=== PATIENT | male | born 1945 ===

== ENCOUNTER 2018-05-02 16:11 | Inpatient (IN) | payer MEDICARE, OTHER ==
[2018-05-02 16:40] VITALS: BMI 22.8
[2018-05-02] MEDS ORDERED: Sodium Chloride 0.9% 1,000 ML IV STA ×2 (16:47→22:39)
[2018-05-02 17:47] LABS: BASO # 0.03 K/mm3 (0.0-2.0); BASO % 0.4 % (0.0-3.0); EOS # 0.1 (0.0-0.7); EOS % 0.9 % (1.5-5.0); GRAN # 5.15 (1.4-6.5); GRAN % 65.4 % (50.0-68.0); HEMOGLOBIN 14.9 g/dL (14.0-18.0); LYMPH # 1.9 (1.2-3.4); LYMPH % 24.6 % (22.0-35.0); MEAN CELL VOLUME 87.8 fl (80.0-105.0); MEAN CORPUSCULAR HEMOGLOBIN 30.8 pg (25.0-35.0); MEAN CORPUSCULAR HGB CONC 35.1 g/dl (31.0-37.0); MEAN PLATELET VOLUME 9.7 fl (7.0-11.0); MONO # 0.7 (0.1-0.6); MONO % 8.7 % (1.0-6.0); RBC 4.84 10^6/uL (3.5-6.1); RED CELL DISTRIBUTION WIDTH 14.5 % (11.5-14.5); URINE BILIRUBIN NEGATIVE (NEGATIVE); URINE BLOOD TRACE-LYSED (NEGATIVE); URINE GLUCOSE (UA) NEGATIVE (NEGATIVE); URINE LEUKOCYTE ESTERASE NEGATIVE Leu/uL (NEGATIVE); URINE PROTEIN NEGATIVE mg/dL (<30 mg/dL); URINE UROBILINOGEN 0.2 E.U./dL (<1 E.U./dL); WHITE BLOOD COUNT 7.9 10^3/uL (4.5-11.0)
--- NOTE | 2018-05-02 17:49 | ED PDOC ---
Arrival/HPI - General Chief Complaint: Medical Clearance Historian: Patient - History of Present Illness Narrative History of Present Illness (Text): 05/02/18 16:44 A 72 year old male, with no significant past medical history, presents to the emergency department complaining of right-side and upper abdominal pain for the past few days. Patient reports also experiencing mild headache. States seeing PMD for the same complaint. Decided to come to the ER to be evaluated. Patient denies any fever, vomiting, dysuria, hematuria, bloody stools, or any other complaints at this time. Time/Duration: < week (past few days) Past Medical History - Provider Review Nursing Documentation Reviewed: Yes - Cardiac Hx Pacemaker: No - Hematological/Oncological Hx Blood Transfusions: No Hx Blood Transfusion Reaction: No - Musculoskeletal/Rheumatological Hx Musculoskeletal Disorders: Yes - Psychiatric Hx Emotional Abuse: No Hx Physical Abuse: No Hx Substance Use: No - Anesthesia Hx Anesthesia Reactions: No Hx Malignant Hyperthermia: No - Suicidal Assessment Feels Threatened In Home Enviroment: No Family/Social History - Physician Review Nursing Documentation Reviewed: Yes Family/Social History: No Known Family HX Smoking Status: Never Smoked Hx Alcohol Use: Yes (WINE) Hx Substance Use: No Allergies/Home Meds Allergies/Adverse Reactions: Allergies No Known Allergies Allergy (Verified 11/24/11 16:27) Home Medications: Home Meds Medication Instructions Recorded Confirmed Pantoprazole [Protonix] 40 mg PO DAILY 05/02/18 05/03/18 RX: Sertraline [Zoloft] 1 tab PO HS 05/02/18 05/03/18 Temazepam [Restoril] 15 mg PO DAILY 05/02/18 05/03/18 Zolpidem [Ambien] 10 mg PO DAILY 05/02/18 05/03/18 tiZANidine [Zanaflex] 2 mg PO Q8 05/02/18 05/03/18 Review of Systems - Physician Review All systems were reviewed & negative as marked: Yes - Review of Systems Constitutional: absent: Fevers Gastrointestinal: Abdominal Pain (right-side and upper region). absent: Stool Changes (no bloody stool), Vomiting Genitourinary Male: absent: Dysuria, Hematuria Neurological: Headache (mild) Physical Exam - Systems Exam Head: Present: Atraumatic, Normocephalic Pupils: Present: PERRL Extroacular Muscles: Present: EOMI Conjunctiva: Present: Normal Mouth: Present: Moist Mucous Membranes Neck: Present: Normal Range of Motion Respiratory/Chest: Present: Clear to Auscultation, Good Air Exchange. No: Respiratory Distress, Accessory Muscle Use Cardiovascular: Present: Regular Rate and Rhythm, Normal S1, S2. No: Murmurs Abdomen: No: Tenderness, Distention, Peritoneal Signs Back: Present: Normal Inspection Upper Extremity: Present: Normal Inspection. No: Cyanosis, Edema Lower Extremity: Present: Normal Inspection. No: Edema Neurological: Present: GCS=15, CN II-XII Intact, Speech Normal Skin: Present: Warm, Dry, Normal Color. No: Rashes Psychiatric: Present: Alert, Oriented x 3, Normal Insight, Normal Concentration Medical Decision Making ED Course and Treatment: 05/02/18 16:47 Impression: 72 year old male with right-side and upper abdominal pain and mild headache. Physical exam is unremarkable. Plan: -- Abd/Pelvis CT -- Labs -- Urinalysis -- Urine Culture -- Pepcid -- IV Fluids -- Reassess and disposition Progress Notes: - Lab Interpretations I have reviewed the lab results: Yes - RAD Interpretation Radiology Orders: 05/02/18 16:47 ABD & PELVIS IV CONTRAST ONLY [CT] Stat - Medication Orders Current Medication Orders: Sodium Chloride (Sodium Chloride 0.9%) 1,000 mls @ 100 mls/hr IV .Q10H STA Stop: 05/03/18 02:46 Last Admin: 05/02/18 17:23 Dose: 100 mls/hr eMAR Start Stop Document 05/02/18 17:23 OCS (Rec: 05/02/18 17:23 OCS [id number]) Intravenous Solution Start Date 05/02/18 Start Time 17:23 Discontinued Medications Famotidine (Pepcid) 20 mg IVP STAT STA Stop: 05/02/18 16:48 Last Admin: 05/02/18 17:23 Dose: 20 mg IVP Administration Document 05/02/18 17:23 OCS (Rec: 05/02/18 17:23 OCS [id number]) Charges for Administration # of IVP Administrations 1 - Scribe Statement The provider has reviewed the documentation as recorded by the Mami Wylie Provider Scribe Attestation: All medical record entries made by the Scribe were at my direction and personally dictated by me. I have reviewed the chart and agree that the record accurately reflects my personal performance of the history, physical exam, medical decision making, and the department course for this patient. I have also personally directed, reviewed, and agree with the discharge instructions and disposition. Disposition/Present on Arrival - Present on Arrival Any Indicators Present on Arrival: No History of DVT/PE: No History of Uncontrolled Diabetes: No Urinary Catheter: No History of Decub. Ulcer: No History Surgical Site Infection Following: None - Disposition Have Diagnosis and Disposition been Completed?: Yes Diagnosis: Gallstones, Lumbar radiculopathy Disposition: HOME/ ROUTINE Disposition Time: 19:00 Patient Problems: Current Active Problems Problem Status Onset Gallstones Acute Lumbar radiculopathy Acute Condition: FAIR
[2018-05-02 17:51] LABS: URINE COLOR YELLOW (YELLOW)
[2018-05-02 17:52] LABS: ALB/GLOB RATIO 1.3 (1.1-1.8); ALBUMIN 4.2 g/dL (3.0-4.8); ALT/SGPT 22 U/L (7-56); AST/SGOT 25 U/L (17-59); BLOOD UREA NITROGEN 16 mg/dL (7-21); CALCIUM 9.4 mg/dL (8.4-10.5); GFR NON-AFRICAN AMERICAN > 60; LIPASE 280 U/L (23-300); URINE APPEARANCE CLEAR (CLEAR)
[2018-05-02 18:11] LABS: URINE BACTERIA MOD (NEG)
[2018-05-02] MEDS ORDERED: Iohexol 350 MG/100 ML VIAL ONE (18:22)
--- NOTE | 2018-05-02 19:04 | CT ---
Date of service: 05/02/2018 PROCEDURE: CT Abdomen and Pelvis with contrast HISTORY: right-sided abdominal pain COMPARISON: Abdominal ultrasound performed 08/04/17, CT of the abdomen pelvis with contrast performed 12/18/13 TECHNIQUE: Contrast dose: 449.83 Radiation dose: Total exam DLP = 449.83 mGy-cm. This CT exam was performed using one or more of the following dose reduction techniques: Automated exposure control, adjustment of the mA and/or kV according to patient size, and/or use of iterative reconstruction technique. FINDINGS: LOWER THORAX: No visible consolidation, pleural effusion, or pneumothorax. Coronary artery calcifications. LIVER: Hypoattenuation of the liver compatible with hepatic steatosis. GALLBLADDER AND BILE DUCTS: Incomplete distention of the gallbladder. Probable gallstone. PANCREAS: Unremarkable. SPLEEN: Unremarkable. ADRENALS: Bilateral nodular adrenal gland hypertrophy. KIDNEYS AND URETERS: The kidneys enhance symmetrically. No hydronephrosis or obstructing calculus identified. VASCULATURE: No aortic aneurysm. Atherosclerotic calcifications and mural plaque of the aorta present. BOWEL: Stomach is nondistended. Lack of oral contrast limits evaluation for bowel pathology. Bowel loops appear within normal limits of caliber without evidence of obstruction. Diverticulosis without CT evidence of acute diverticulitis. APPENDIX: The appendix is not identified. No secondary signs of acute appendicitis. PERITONEUM: No significant free fluid. No definite free air. LYMPH NODES: No bulky adenopathy identified. BLADDER: Unremarkable. REPRODUCTIVE: Prostate gland measures approximately 4.0 x 6.0 cm and contains coarse calcifications. BONES: Degenerative changes. Osseous demineralization. OTHER FINDINGS: None. IMPRESSION: Incomplete distention of the gallbladder. Probable gallstone. Right upper quadrant ultrasound may be considered if indicated. Bilateral nodular adrenal gland hypertrophy. Suggest outpatient MRI for further characterization if indicated. The appendix is not identified. No secondary signs of acute appendicitis. Diverticulosis without CT evidence of acute diverticulitis. Enlarged prostate gland. Recommend correlation with PSA. Hypoattenuation of the liver compatible with hepatic steatosis. Additional findings as above.
--- NOTE | 2018-05-02 20:23 | ED PDOC ---
Physical Exam Vital Signs Reviewed: Yes Vital Signs Temp Pulse Resp BP Pulse Ox 05/02/18 19:06 98.0 F 63 18 132/83 98 Temperature: Afebrile Blood Pressure: Normal Pulse: Regular Respiratory Rate: Normal Appearance: Positive for: Well-Appearing, Non-Toxic, Comfortable Pain Distress: None Mental Status: Positive for: Alert and Oriented X 3 Medical Decision Making ED Course and Treatment: 05/02/18 20:21 Patient endorsed to me by Dr. Champion, pending CT and US results. 05/02/18 20:21 CT Abdomen and Pelvis with contrast HISTORY: right-sided abdominal pain COMPARISON: Abdominal ultrasound performed 08/04/17, CT of the abdomen pelvis with contrast performed 12/18/13 TECHNIQUE: Contrast dose: 449.83 Radiation dose: Total exam DLP = 449.83 mGy-cm. This CT exam was performed using one or more of the following dose reduction techniques: Automated exposure control, adjustment of the mA and/or kV according to patient size, and/or use of iterative reconstruction technique. FINDINGS: LOWER THORAX: No visible consolidation, pleural effusion, or pneumothorax. Coronary artery calcifications. LIVER: Hypoattenuation of the liver compatible with hepatic steatosis. GALLBLADDER AND BILE DUCTS: Incomplete distention of the gallbladder. Probable gallstone. PANCREAS: Unremarkable. SPLEEN: Unremarkable. ADRENALS: Bilateral nodular adrenal gland hypertrophy. KIDNEYS AND URETERS: The kidneys enhance symmetrically. No hydronephrosis or obstructing calculus identified. VASCULATURE: No aortic aneurysm. Atherosclerotic calcifications and mural plaque of the aorta present. BOWEL: Stomach is nondistended. Lack of oral contrast limits evaluation for bowel pathology. Bowel loops appear within normal limits of caliber without evidence of obstruction. Diverticulosis without CT evidence of acute diverticulitis. APPENDIX: The appendix is not identified. No secondary signs of acute appendicitis. PERITONEUM: No significant free fluid. No definite free air. LYMPH NODES: No bulky adenopathy identified. BLADDER: Unremarkable. REPRODUCTIVE: Prostate gland measures approximately 4.0 x 6.0 cm and contains coarse calcifications. BONES: Degenerative changes. Osseous demineralization. OTHER FINDINGS: None. IMPRESSION: Incomplete distention of the gallbladder. Probable gallstone. Right upper quadrant ultrasound may be considered if indicated. Bilateral nodular adrenal gland hypertrophy. Suggest outpatient MRI for further characterization if indicated. The appendix is not identified. No secondary signs of acute appendicitis. Diverticulosis without CT evidence of acute diverticulitis. Enlarged prostate gland. Recommend correlation with PSA. Hypoattenuation of the liver compatible with hepatic steatosis. Additional findings as above. 05/02/18 21:32 US-Gallbladder History Abdominal pain. Comparison None. Technique Sonographic evaluation of the right upper quadrant of the abdomen. Findings Liver Measures 14.43 x 12.93 cm in length. Increased echogenicity of the liver parenchyma. No mass. No intrahepatic bile duct dilatation. Gallbladder Gallstones. Gallbladder wall thickness measures 0.24 cm. Common bile duct Measures 3.9 mm. No stones. No dilatation. Pancreas Not visualized. Right kidney Measures 12.69 x 5.86 x 6.05 cm in length. Normal echogenicity. No calculus, mass, or hydronephrosis. Aorta No aneurysmal dilatation. IVC Unremarkable. Other Findings None. Impression 1. Fatty liver. 2. Gallstones. pt still with pain case d/w dr robbins will obs for abd pain - Lab Interpretations Lab Results: 05/02/18 17:39 05/02/18 17:39 Lab Results 05/02/18 17:39: Sodium 140, Potassium 4.2, Chloride 108 H, Carbon Dioxide 23, Anion Gap 13, BUN 16, Creatinine 0.8, Est GFR ( Amer) > 60, Est GFR (Non- Af Amer) > 60, Random Glucose 110, Calcium 9.4, Magnesium 2.2, Total Bilirubin 0.4, AST 25, ALT 22, Alkaline Phosphatase 75, Total Protein 7.5, Albumin 4.2, Globulin 3.3, Albumin/Globulin Ratio 1.3, Lipase 280 05/02/18 17:39: Urine Color Yellow, Urine Appearance Clear, Urine pH 6.0, Ur Specific [place] 1.020, Urine Protein Negative, Urine Glucose (UA) Negative, Urine Ketones Negative, Urine Blood Trace-lysed H, Urine Nitrate Negative, Urine Bilirubin Negative, Urine Urobilinogen 0.2, Ur Leukocyte Esterase Negative, Urine RBC 1 - 3, Urine WBC 5 - 10, Ur Epithelial Cells 6 - 8, Urine Bacteria Mod 05/02/18 17:39: WBC 7.9, RBC 4.84, Hgb 14.9, Hct 42.5, MCV 87.8, MCH 30.8, MCHC 35.1, RDW 14.5, Plt Count 224, MPV 9.7, Gran % 65.4, Lymph % (Auto) 24.6, [place] % (Auto) 8.7 H, Eos % (Auto) 0.9 L, Baso % (Auto) 0.4, Gran # 5.15, Lymph # (Auto) 1.9, [place] # (Auto) 0.7 H, Eos # (Auto) 0.1, Baso # (Auto) 0.03 - RAD Interpretation Radiology Orders: 05/02/18 16:47 ABD & PELVIS IV CONTRAST ONLY [CT] Stat 05/02/18 19:12 GALL BLADDER [US] Stat - Medication Orders Current Medication Orders: Sodium Chloride (Sodium Chloride 0.9%) 1,000 mls @ 100 mls/hr IV .Q10H STA Stop: 05/03/18 02:46 Last Admin: 05/02/18 17:23 Dose: 100 mls/hr eMAR Start Stop Document 05/02/18 17:23 OCS (Rec: 05/02/18 17:23 OCS [id number]) Intravenous Solution Start Date 05/02/18 Start Time 17:23 Discontinued Medications Famotidine (Pepcid) 20 mg IVP STAT STA Stop: 05/02/18 16:48 Last Admin: 05/02/18 17:23 Dose: 20 mg IVP Administration Document 05/02/18 17:23 OCS (Rec: 05/02/18 17:23 OCS [id number]) Charges for Administration # of IVP Administrations 1 Disposition/Present on Arrival - Present on Arrival Any Indicators Present on Arrival: No History of DVT/PE: No History of Uncontrolled Diabetes: No Urinary Catheter: No History of Decub. Ulcer: No History Surgical Site Infection Following: None - Disposition Have Diagnosis and Disposition been Completed?: Yes Diagnosis: Gallstones, Lumbar radiculopathy Disposition: HOME/ ROUTINE Disposition Time: 23:00 Patient Problems: Current Active Problems Problem Status Onset Gallstones Acute Lumbar radiculopathy Acute Condition: FAIR
[2018-05-03] MEDS: Morphine 2 mg/ml ISec IVP PRN ×2 (02:49→11:42)
[2018-05-03 07:23] LABS: BASO # 0.03 K/mm3 (0.0-2.0); BASO % 0.4 % (0.0-3.0); EOS # 0.1 (0.0-0.7); EOS % 1.5 % (1.5-5.0); GRAN # 3.67 (1.4-6.5); GRAN % 53.3 % (50.0-68.0); HEMOGLOBIN 14.3 g/dL (14.0-18.0); LYMPH # 2.3 (1.2-3.4); LYMPH % 33.9 % (22.0-35.0); MEAN CELL VOLUME 87.4 fl (80.0-105.0); MEAN CORPUSCULAR HEMOGLOBIN 30.1 pg (25.0-35.0); MEAN CORPUSCULAR HGB CONC 34.5 g/dl (31.0-37.0); MEAN PLATELET VOLUME 9.5 fl (7.0-11.0); MONO # 0.8 (0.1-0.6); MONO % 10.9 % (1.0-6.0); RBC 4.75 10^6/uL (3.5-6.1); RED CELL DISTRIBUTION WIDTH 14.6 % (11.5-14.5); WHITE BLOOD COUNT 6.9 10^3/uL (4.5-11.0)
[2018-05-03 07:48] LABS: ALB/GLOB RATIO 1.2 (1.1-1.8); ALBUMIN 3.9 g/dL (3.0-4.8); ALT/SGPT 26 U/L (7-56); AST/SGOT 22 U/L (17-59); BLOOD UREA NITROGEN 12 mg/dL (7-21); CALCIUM 9.1 mg/dL (8.4-10.5); GFR NON-AFRICAN AMERICAN > 60
--- NOTE | 2018-05-03 07:54 | CP.PCM.CON ---
<Tj Ling - Last Filed: 05/03/18 07:57> History of Present Illness - History of Present Illness History of Present Illness: 72M with no significant PMHx reports to [facility] ED with complaints of RUQ pain and back pain. Patient reports pain began about two weeks ago. He reports having to eat small meals otherwise he feels bloated and uncomfortable. He denies RUQ pain after meals. Denies fever/chills, chest pain, coughing, shortness of breath, nausea/vomiting, dysuria. PMHx: denies PSurgHx: Left inguinal hernia, fistula in ano repair , open appendectomy Allergies: NKDA Review of Systems - Review of Systems Review of Systems: 10 pt ROS reviewed, unremarkable. Past Patient History - Past Social History Smoking Status: Heavy Smoker > 10 Cigarettes Daily - CARDIAC Hx Pacemaker: No - HEMATOLOGICAL/ONCOLOGICAL Hx Blood Transfusions: No Hx Blood Transfusion Reaction: No - MUSCULOSKELETAL/RHEUMATOLOGICAL Hx Musculoskeletal Disorders: Yes Hx Falls: No - PSYCHIATRIC Hx Emotional Abuse: No Hx Physical Abuse: No Hx Substance Use: No - SURGICAL HISTORY Hx Surgeries: Yes Hx Appendectomy: Yes - ANESTHESIA Hx Anesthesia Reactions: No Hx Malignant Hyperthermia: No Meds Allergies/Adverse Reactions: Allergies Allergy/AdvReac Type Severity Reaction Status Date / Time No Known Allergies Allergy Verified 11/24/11 16:27 - Medications Medications: Current Medications Acetaminophen (Tylenol 325mg Tab) 650 mg PO Q4H PRN PRN Reason: Pain, Mild (1-3) Sodium Chloride (Sodium Chloride 0.9%) 1,000 mls @ 100 mls/hr IV .Q10H STA Stop: 05/03/18 08:38 Last Admin: 05/02/18 23:36 Dose: 100 mls/hr Morphine Sulfate (Morphine) 1 mg IVP Q6 PRN PRN Reason: Pain, moderate (4-7) Last Admin: 05/03/18 02:49 Dose: 1 mg Ondansetron HCl (Zofran Inj) 4 mg IVP Q6 PRN PRN Reason: Nausea/Vomiting Physical Exam - Constitutional Appears: No Acute Distress - Head Exam Head Exam: NORMOCEPHALIC - Eye Exam Eye Exam: EOMI, Normal appearance - ENT Exam ENT Exam: Mucous Membranes Moist - Respiratory Exam Respiratory Exam: NORMAL BREATHING PATTERN - Cardiovascular Exam Cardiovascular Exam: +S1, +S2 - GI/Abdominal Exam GI & Abdominal Exam: Soft. absent: Distended, Firm, Guarding - Neurological Exam Neurological exam: Alert, Oriented x3 - Psychiatric Exam Psychiatric exam: Normal Mood - Skin Skin Exam: Dry, Intact, Warm Results - Vital Signs Recent Vital Signs: Last Vital Signs Temp 97.6 F 05/03/18 06:00 Pulse 61 05/03/18 06:00 Resp 20 05/03/18 06:00 BP 138/89 05/03/18 06:00 Pulse Ox 98 05/03/18 06:00 - Labs Result Diagrams: 05/03/18 07:00 05/03/18 07:00 Labs: Laboratory Results - last 24 hr 05/02/18 05/02/18 05/02/18 17:39 17:39 17:39 WBC 7.9 RBC 4.84 Hgb 14.9 Hct 42.5 MCV 87.8 MCH 30.8 MCHC 35.1 RDW 14.5 Plt Count 224 MPV 9.7 Gran % 65.4 Lymph % (Auto) 24.6 [place] % (Auto) 8.7 H Eos % (Auto) 0.9 L Baso % (Auto) 0.4 Gran # 5.15 Lymph # (Auto) 1.9 [place] # (Auto) 0.7 H Eos # (Auto) 0.1 Baso # (Auto) 0.03 Sodium 140 Potassium 4.2 Chloride 108 H Carbon Dioxide 23 Anion Gap 13 BUN 16 Creatinine 0.8 Est GFR ( Amer) > 60 Est GFR (Non-Af Amer) > 60 Random Glucose 110 Calcium 9.4 Magnesium 2.2 Total Bilirubin 0.4 AST 25 ALT 22 Alkaline Phosphatase 75 Total Protein 7.5 Albumin 4.2 Globulin 3.3 Albumin/Globulin Ratio 1.3 Lipase 280 Urine Color Yellow Urine Appearance Clear Urine pH 6.0 Ur Specific [place] 1.020 Urine Protein Negative Urine Glucose (UA) Negative Urine Ketones Negative Urine Blood Trace-lysed H Urine Nitrate Negative Urine Bilirubin Negative Urine Urobilinogen 0.2 Ur Leukocyte Esterase Negative Urine RBC 1 - 3 Urine WBC 5 - 10 Ur Epithelial Cells 6 - 8 Urine Bacteria Mod 05/03/18 05/03/18 07:00 07:00 WBC 6.9 RBC 4.75 Hgb 14.3 Hct 41.5 L MCV 87.4 MCH 30.1 MCHC 34.5 RDW 14.6 H Plt Count 205 MPV 9.5 Gran % 53.3 Lymph % (Auto) 33.9 [place] % (Auto) 10.9 H Eos % (Auto) 1.5 Baso % (Auto) 0.4 Gran # 3.67 Lymph # (Auto) 2.3 [place] # (Auto) 0.8 H Eos # (Auto) 0.1 Baso # (Auto) 0.03 Sodium 140 Potassium 3.9 Chloride 111 H Carbon Dioxide 22 Anion Gap 12 BUN 12 Creatinine 0.7 L Est GFR ( Amer) > 60 Est GFR (Non-Af Amer) > 60 Random Glucose 91 Calcium 9.1 Magnesium Total Bilirubin 0.8 AST 22 ALT 26 Alkaline Phosphatase 75 Total Protein 7.1 Albumin 3.9 Globulin 3.2 Albumin/Globulin Ratio 1.2 Lipase Urine Color Urine Appearance Urine pH Ur Specific [place] Urine Protein Urine Glucose (UA) Urine Ketones Urine Blood Urine Nitrate Urine Bilirubin Urine Urobilinogen Ur Leukocyte Esterase Urine RBC Urine WBC Ur Epithelial Cells Urine Bacteria Assessment & Plan - Assessment and Plan (Free Text) Assessment: 72M with symptomatic cholelithiasis Plan: NPO IVF Analgesics prn F/u HIDA scan Consider PPI Further recs per Dr. Michele Longoria PGY3 <Mio Bautista - Last Filed: 05/06/18 17:42> Results - Vital Signs Recent Vital Signs: Last Vital Signs Temp 97.9 F 05/05/18 14:00 Pulse 55 L 05/05/18 14:00 Resp 20 05/05/18 14:00 BP 117/76 05/05/18 14:00 Pulse Ox 97 05/05/18 14:00 - Labs Result Diagrams: 05/05/18 07:00 05/05/18 07:00 Assessment & Plan - Assessment and Plan (Free Text) Plan: Dc GB Colic-no urgent need for surgery now(Pt unsure) This consult done under my direct supervision Rena Bautista MD FACS
--- NOTE | 2018-05-03 08:25 | HP ---
HISTORY OF PRESENT ILLNESS: The patient is a 72-year-old man who presented to [facility] ED for evaluation of a 1 week history of RUQ abdominal pain and biliary colic. The patient was seen in his PMD's office approximately 2 weeks ago for evaluation of dyspepsia and epigastric abdominal pain. Physical examination at that time was consistent with gastritis and he was started on Protonix 40 mg p.o. daily. He initially reported improvement in his symptoms however after about 1 week of therapy he developed recurrent epigastric abdominal pain. Shortly thereafter he developed RUQ abdominal pain associated with bloating, early satiety and nausea. Due to his increasing symptoms he opted for ED evaluation. Examination in the ED found him to be afebrile and hemodynamically stable. A CT of the abdomen and pelvis demonstrated cholelithiasis and he was subsequently admitted to the general medical rolle for IV fluid hydration, pain control and surgical evaluation. PAST MEDICAL HISTORY: Lumbosacral radiculopathy, insomnia and depression. PAST SURGICAL HISTORY: Left inguinal hernia repair, appendectomy and fistula in ano repair. ALLERGIES: NKDA. MEDICATIONS: Zoloft 100 mg p.o. daily, Motrin 800 mg p.o. t.i.d. p.r.n. pain and Restoril 15 mg p.o. at bedtime p.r.n. FAMILY HISTORY: Noncontributory. SOCIAL HISTORY: The patient reports an active [id number] smoking history and social alcohol use. He denies illicit drug abuse. REVIEW OF SYSTEMS: A 12-point review of systems is negative except as per HPI. PHYSICAL EXAMINATION: VITAL SIGNS: Temperature 97.6, pulse 61, blood pressure 138/89, respiratory rate 20, oxygen saturation 98% on room air. GENERAL: No apparent distress. HEENT: PERRL, EOMI. No scleral icterus. No conjunctival pallor. NECK: No JVD, no bruits. LUNGS: Clear to auscultation. CARDIOVASCULAR: Regular rate and rhythm. Normal S1 and S2. ABDOMEN: Normoactive bowel sounds, soft, tender to palpation to RUQ with voluntary guarding. Negative Lucia sign. EXTREMITIES: No edema. NEUROLOGIC: Awake, alert and oriented x 3. No focal motor deficits. LABORATORY DATA: CBC reviewed and unremarkable. CMP reviewed and unremarkable. IMAGING STUDIES: 1. CT of the abdomen and pelvis with IV contrast demonstrated diverticulosis with no evidence of acute diverticulitis, an enlarged prostate gland, hepatic steatosis and incomplete distention of the gallbladder with probable gallstones. 2. Gallbladder ultrasound demonstrated fatty liver and gallstones. ASSESSMENT: The patient is a 72-year-old man with a past medical history of lumbosacral radiculopathy who presented for evaluation of a several day history of biliary colic and was admitted for surgical evaluation of cholelithiasis. PLAN: 1. Cholelithiasis. Surgical evaluation with Dr. Velasco and the surgical team is pending. GI evaluation with Dr. Nicholas is also ordered and pending. The patient remains n.p.o.. Continue IV fluid hydration, Zofran p.r.n. and Morphine p.r.n. The patient is a low-risk candidate for an intermediate risk procedure and may proceed to the OR with no further cardiopulmonary workup. 2. Depression. Resume Zoloft 100 mg p.o. daily. 3. Lumbosacral radiculopathy. 4. Insomnia. The patient is on Restoril at home however this is not on formulary. We will start Ambien 10 mg p.o. at bedtime as needed. 5. Prophylaxis. Continue with Pepcid for GI prophylaxis. DVT prophylaxis not indicated as the patient is ambulatory. CODE STATUS: Full code. Baudilio Egan MD [id number]
--- NOTE | 2018-05-03 10:17 | US ---
Date of service: 05/02/2018 HISTORY: Abdominal pain COMPARISON: None. TECHNIQUE: Sonographic evaluation of the right upper quadrant of the abdomen. FINDINGS: LIVER: Measures 14.4 cm in length. There is diffuse increased echogenicity of the liver parenchyma. No mass. No intrahepatic bile duct dilatation. GALLBLADDER: There are multiple gallstones. No wall pericholecystic fluid. The sonographic Lucia's sign is negative. COMMON BILE DUCT: Measures 4.0 mm. No stones. No dilatation. PANCREAS: Unremarkable as visualized. No mass. No ductal dilatation. RIGHT KIDNEY: Measures 12.6 cm in length. Normal echogenicity. No calculus, mass, or hydronephrosis. AORTA: No aneurysmal dilatation. IVC: Unremarkable. OTHER FINDINGS: None . IMPRESSION: Cholelithiasis. Diffuse increased echogenicity in the liver may reflect hepatic steatosis however parenchymal infectious/ inflammatory etiologies cannot be entirely excluded. Clinical and laboratory correlation is advised. A preliminary report was provided by [employer].
--- NOTE | 2018-05-03 12:08 | CP.PCM.CON ---
<Carmelo Machuca - Last Filed: 05/03/18 12:03> History of Present Illness - History of Present Illness History of Present Illness: PGY-2 GI consult note for Dr Nicholas Mr Serna is a 72 year old male with a PMHx of lumbar disc disease, arthritis, who presents with crampy right upper quadrant abdominal pain for the past 2 weeks. He states the pain is worse 2 hours after eating. The pain has been getting worse in the past few days thus he decided to come to the ED. He denies emesis, nausea, hematochezia, diarrhea, heartburn. He denies fevers/chills. He states he had a colonoscopy about 4 years ago which was normal. He states he had an EGD about 30 years ago which showed he had h.pylori. PMHx: lumbar disc disease, arthritis PSHx: appendectomy Allergies: NKA SocialHx: 25 year pack tobacco hx - current smoker, social alcohol, denies illicits, lives with FamHx: denies fam hx of colon cancer Review of Systems - Review of Systems All systems: reviewed and no additional remarkable complaints except (what's stated in HPI) Past Patient History - Past Social History Smoking Status: Never Smoked - CARDIAC Hx Pacemaker: No - HEMATOLOGICAL/ONCOLOGICAL Hx Blood Transfusions: No Hx Blood Transfusion Reaction: No - MUSCULOSKELETAL/RHEUMATOLOGICAL Hx Musculoskeletal Disorders: Yes - PSYCHIATRIC Hx Emotional Abuse: No Hx Physical Abuse: No Hx Substance Use: No - SURGICAL HISTORY Hx Surgeries: Yes Hx Appendectomy: Yes - ANESTHESIA Hx Anesthesia Reactions: No Hx Malignant Hyperthermia: No Meds Allergies/Adverse Reactions: Allergies Allergy/AdvReac Type Severity Reaction Status Date / Time No Known Allergies Allergy Verified 11/24/11 16:27 - Medications Medications: Current Medications Acetaminophen (Tylenol 325mg Tab) 650 mg PO Q4H PRN PRN Reason: Pain, Mild (1-3) Morphine Sulfate (Morphine) 1 mg IVP Q6 PRN PRN Reason: Pain, moderate (4-7) Last Admin: 05/03/18 11:42 Dose: 1 mg Ondansetron HCl (Zofran Inj) 4 mg IVP Q6 PRN PRN Reason: Nausea/Vomiting Sertraline HCl (Zoloft) 100 mg PO DAILY MARTHA Zolpidem Tartrate (Ambien) 10 mg PO HS PRN; Protocol PRN Reason: Insomnia Physical Exam - Constitutional Appears: Well, Non-toxic, No Acute Distress - Head Exam Head Exam: ATRAUMATIC, NORMAL INSPECTION - Eye Exam Eye Exam: EOMI, Normal appearance, PERRL. absent: Scleral icterus - ENT Exam ENT Exam: Mucous Membranes Moist - Neck Exam Neck exam: Positive for: Normal Inspection - Respiratory Exam Respiratory Exam: Clear to Auscultation Bilateral, NORMAL BREATHING PATTERN. absent: Rales, Rhonchi, Wheezes - Cardiovascular Exam Cardiovascular Exam: REGULAR RHYTHM, +S1, +S2. absent: Tachycardia, JVD, Systolic Murmur - GI/Abdominal Exam GI & Abdominal Exam: Normal Bowel Sounds, Soft. absent: Distended, Firm, Guarding, Hernia, Rebound, Rigid, Tenderness - Extremities Exam Extremities exam: Positive for: normal inspection - Neurological Exam Neurological exam: Alert, Oriented x3 - Skin Skin Exam: Normal Color, Warm Results - Vital Signs Recent Vital Signs: Last Vital Signs Temp 97.6 F 05/03/18 06:00 Pulse 61 05/03/18 06:00 Resp 20 05/03/18 06:00 BP 138/89 05/03/18 06:00 Pulse Ox 98 05/03/18 06:00 - Labs Result Diagrams: 05/03/18 07:00 05/03/18 07:00 Labs: Laboratory Results - last 24 hr 05/02/18 05/02/18 05/02/18 17:39 17:39 17:39 WBC 7.9 RBC 4.84 Hgb 14.9 Hct 42.5 MCV 87.8 MCH 30.8 MCHC 35.1 RDW 14.5 Plt Count 224 MPV 9.7 Gran % 65.4 Lymph % (Auto) 24.6 [place] % (Auto) 8.7 H Eos % (Auto) 0.9 L Baso % (Auto) 0.4 Gran # 5.15 Lymph # (Auto) 1.9 [place] # (Auto) 0.7 H Eos # (Auto) 0.1 Baso # (Auto) 0.03 Sodium 140 Potassium 4.2 Chloride 108 H Carbon Dioxide 23 Anion Gap 13 BUN 16 Creatinine 0.8 Est GFR ( Amer) > 60 Est GFR (Non-Af Amer) > 60 Random Glucose 110 Calcium 9.4 Magnesium 2.2 Total Bilirubin 0.4 AST 25 ALT 22 Alkaline Phosphatase 75 Total Protein 7.5 Albumin 4.2 Globulin 3.3 Albumin/Globulin Ratio 1.3 Lipase 280 Urine Color Yellow Urine Appearance Clear Urine pH 6.0 Ur Specific [place] 1.020 Urine Protein Negative Urine Glucose (UA) Negative Urine Ketones Negative Urine Blood Trace-lysed H Urine Nitrate Negative Urine Bilirubin Negative Urine Urobilinogen 0.2 Ur Leukocyte Esterase Negative Urine RBC 1 - 3 Urine WBC 5 - 10 Ur Epithelial Cells 6 - 8 Urine Bacteria Mod 05/03/18 05/03/18 07:00 07:00 WBC 6.9 RBC 4.75 Hgb 14.3 Hct 41.5 L MCV 87.4 MCH 30.1 MCHC 34.5 RDW 14.6 H Plt Count 205 MPV 9.5 Gran % 53.3 Lymph % (Auto) 33.9 [place] % (Auto) 10.9 H Eos % (Auto) 1.5 Baso % (Auto) 0.4 Gran # 3.67 Lymph # (Auto) 2.3 [place] # (Auto) 0.8 H Eos # (Auto) 0.1 Baso # (Auto) 0.03 Sodium 140 Potassium 3.9 Chloride 111 H Carbon Dioxide 22 Anion Gap 12 BUN 12 Creatinine 0.7 L Est GFR ( Amer) > 60 Est GFR (Non-Af Amer) > 60 Random Glucose 91 Calcium 9.1 Magnesium Total Bilirubin 0.8 AST 22 ALT 26 Alkaline Phosphatase 75 Total Protein 7.1 Albumin 3.9 Globulin 3.2 Albumin/Globulin Ratio 1.2 Lipase Urine Color Urine Appearance Urine pH Ur Specific [place] Urine Protein Urine Glucose (UA) Urine Ketones Urine Blood Urine Nitrate Urine Bilirubin Urine Urobilinogen Ur Leukocyte Esterase Urine RBC Urine WBC Ur Epithelial Cells Urine Bacteria Assessment & Plan - Assessment and Plan (Free Text) Plan: Mr Serna is a 72 year old male with a PMHx of lumbar disc disease, arthritis, who presents with crampy right upper quadrant abdominal pain for the past 2 weeks: Biliary Colic -rule out cholecystitis -CT abd/pelvis w/ contrast: * Incomplete distention of the gallbladder. Probable gallstone. -abd ultrasound: * cholelithiasis, CBD 4mm -LFTs normal, CBD size normal -f/u biliary HIDA scan -tolerating liquid diet - advance as tolerated -general surgery on board - Dr Velasco Seen and discussed with Dr Nicholas <Lula Nicholas V - Last Filed: 05/03/18 23:55> Meds - Medications Medications: Current Medications Acetaminophen (Tylenol 325mg Tab) 650 mg PO Q4H PRN PRN Reason: Pain, Mild (1-3) Morphine Sulfate (Morphine) 1 mg IVP Q6 PRN PRN Reason: Pain, moderate (4-7) Last Admin: 05/03/18 11:42 Dose: 1 mg Ondansetron HCl (Zofran Inj) 4 mg IVP Q6 PRN PRN Reason: Nausea/Vomiting Sertraline HCl (Zoloft) 100 mg PO DAILY MARTHA Last Admin: 05/03/18 16:01 Dose: Not Given Zolpidem Tartrate (Ambien) 10 mg PO HS PRN; Protocol PRN Reason: Insomnia Last Admin: 05/03/18 22:21 Dose: 10 mg Results - Vital Signs Recent Vital Signs: Last Vital Signs Temp 98.2 F 05/03/18 23:07 Pulse 47 L 05/03/18 23:07 Resp 18 05/03/18 23:07 BP 122/74 05/03/18 23:07 Pulse Ox 96 05/03/18 23:07 - Labs Result Diagrams: 05/03/18 07:00 05/03/18 07:00 Labs: Laboratory Results - last 24 hr 05/03/18 05/03/18 07:00 07:00 WBC 6.9 RBC 4.75 Hgb 14.3 Hct 41.5 L MCV 87.4 MCH 30.1 MCHC 34.5 RDW 14.6 H Plt Count 205 MPV 9.5 Gran % 53.3 Lymph % (Auto) 33.9 [place] % (Auto) 10.9 H Eos % (Auto) 1.5 Baso % (Auto) 0.4 Gran # 3.67 Lymph # (Auto) 2.3 [place] # (Auto) 0.8 H Eos # (Auto) 0.1 Baso # (Auto) 0.03 Sodium 140 Potassium 3.9 Chloride 111 H Carbon Dioxide 22 Anion Gap 12 BUN 12 Creatinine 0.7 L Est GFR ( Amer) > 60 Est GFR (Non-Af Amer) > 60 Random Glucose 91 Calcium 9.1 Total Bilirubin 0.8 AST 22 ALT 26 Alkaline Phosphatase 75 Total Protein 7.1 Albumin 3.9 Globulin 3.2 Albumin/Globulin Ratio 1.2 Attending/Attestation - Attestation I have personally seen and examined this patient.: Yes I have fully participated in the care of the patient.: Yes I have reviewed all pertinent clinical information: Yes Notes (Text): This is an addendum to GI consult report dictated by the Leadership Recruiter.The patient was seen and evaluated earlier. Medical records, lab studies, imagings were reviewed. Last 24 hours events reviewed. Agreed with the above treatment plan as outlined in Leadership Recruiter 's notes with the addition of the following 05/03/18 23:55
--- NOTE | 2018-05-03 22:41 | CP.PCM.PCO ---
Physician Communication Note - Physician Communication Note Physician Communication Note: GB Sx gone/No HIDA avail 2 weeks/Will observe now
[2018-05-04 06:46] LABS: ALB/GLOB RATIO 1.2 (1.1-1.8); ALBUMIN 3.8 g/dL (3.0-4.8); ALT/SGPT 29 U/L (7-56); AST/SGOT 25 U/L (17-59); BLOOD UREA NITROGEN 13 mg/dL (7-21); CALCIUM 9.3 mg/dL (8.4-10.5); GFR NON-AFRICAN AMERICAN > 60
[2018-05-04 07:20] LABS: BASO # 0.04 K/mm3 (0.0-2.0); BASO % 0.5 % (0.0-3.0); EOS # 0.1 (0.0-0.7); EOS % 1.6 % (1.5-5.0); GRAN # 4.81 (1.4-6.5); GRAN % 60.6 % (50.0-68.0); HEMOGLOBIN 14.1 g/dL (14.0-18.0); LYMPH # 2.2 (1.2-3.4); MEAN CELL VOLUME 89.1 fl (80.0-105.0); MEAN CORPUSCULAR HEMOGLOBIN 30.1 pg (25.0-35.0); MEAN CORPUSCULAR HGB CONC 33.8 g/dl (31.0-37.0); MEAN PLATELET VOLUME 9.6 fl (7.0-11.0); MONO # 0.7 (0.1-0.6); MONO % 9.3 % (1.0-6.0); RBC 4.68 10^6/uL (3.5-6.1); RED CELL DISTRIBUTION WIDTH 14.8 % (11.5-14.5); WHITE BLOOD COUNT 7.9 10^3/uL (4.5-11.0)
[2018-05-04 07:56] VITALS: RESP 20
--- NOTE | 2018-05-04 09:02 | CP.PCM.PN ---
Subjective - Date & Time of Evaluation Date of Evaluation: 05/04/18 Time of Evaluation: 07:15 - Subjective Subjective: Patient seen and examined. No acute events over night. Patient reports back pain. Afebrile. Objective - Vital Signs/Intake and Output Vital Signs (last 24 hours): Temp Pulse Resp BP Pulse Ox 98 F 56 L 20 132/76 97 05/04/18 06:00 05/04/18 06:00 05/04/18 06:00 05/04/18 06:00 05/04/18 06:00 - Medications Medications: Current Medications Acetaminophen (Tylenol 325mg Tab) 650 mg PO Q4H PRN PRN Reason: Pain, Mild (1-3) Morphine Sulfate (Morphine) 1 mg IVP Q6 PRN PRN Reason: Pain, moderate (4-7) Last Admin: 05/03/18 11:42 Dose: 1 mg Ondansetron HCl (Zofran Inj) 4 mg IVP Q6 PRN PRN Reason: Nausea/Vomiting Sertraline HCl (Zoloft) 100 mg PO DAILY MARTHA Last Admin: 05/03/18 16:01 Dose: Not Given Zolpidem Tartrate (Ambien) 10 mg PO HS PRN; Protocol PRN Reason: Insomnia Last Admin: 05/03/18 22:21 Dose: 10 mg - Labs Labs: 05/04/18 05:00 05/04/18 05:00 - Constitutional Appears: No Acute Distress - Head Exam Head Exam: NORMOCEPHALIC - Eye Exam Eye Exam: EOMI, Normal appearance - ENT Exam ENT Exam: Mucous Membranes Moist - Respiratory Exam Respiratory Exam: NORMAL BREATHING PATTERN - Cardiovascular Exam Cardiovascular Exam: +S1, +S2 - GI/Abdominal Exam GI & Abdominal Exam: Soft. absent: Distended, Firm, Guarding, Rigid, Tenderness - Neurological Exam Neurological Exam: Alert, Awake, Oriented x3 - Psychiatric Exam Psychiatric exam: Normal Mood - Skin Skin Exam: Dry, Intact, Warm Assessment and Plan - Assessment and Plan (Free Text) Assessment: 72M with cholelithiasis Plan: -HIDA not able to be done due to shortage of dye -Will advance patient to a regular diet -F/u diet tolerance -LFTs within normal range - Will follow Further recs per Dr. Michele Longoria PGY3
--- NOTE | 2018-05-04 10:05 | PN ---
DATE: 05/04/2018 SUBJECTIVE: The patient is in room 561, bed 2. The patient does not have any specific complaints and there have been no acute events overnight. PHYSICAL EXAMINATION: VITAL SIGNS: Temperature of 98, pulse rate of 56, blood pressure 132/76, respiratory rate of 20 with an O2 saturation of 97%. HEENT: PERRLA, EOMI. There is no icterus present. The neck is supple with a full range of motion. No bruits or adenopathy is appreciated. LUNGS: Clear to auscultation and percussion bilaterally. HEART: With a regular rate and rhythm. No murmurs. ABDOMEN: Soft. It is nontender except for the right upper quadrant. NEUROLOGICAL: The patient is intact. LABORATORY VALUES: WBC 7.9, hemoglobin and hematocrit of 14.1 and 41.7. There is no shift. Chemistry is entirely within normal limits. ASSESSMENT AND PLAN: I spoke with Dr. Velasco, who is at a conference. He will in turn speak to Dr. Mio Bautista in an effort to see if they can do a cholecystectomy today. Diagnosis at this point his cholelithiasis. Julio C Egan MD
--- NOTE | 2018-05-04 13:50 | CP.PCM.PN ---
<BrigetteCarmelo R - Last Filed: 05/04/18 13:47> Subjective - Date & Time of Evaluation Date of Evaluation: 05/04/18 Time of Evaluation: 13:47 - Subjective Subjective: PGY-2 GI progress note for Dr Nicholas No acute events noted overnight. Patient denied abdominal pain - denied RUQ pain or pain associated with meals. Tolerated full liquid diet. Denied diarrhea, constipation, nausea, vomiting, fevers. Objective - Vital Signs/Intake and Output Vital Signs (last 24 hours): Temp Pulse Resp BP Pulse Ox 98 F 56 L 20 132/76 97 05/04/18 06:00 05/04/18 06:00 05/04/18 06:00 05/04/18 06:00 05/04/18 06:00 - Medications Medications: Current Medications Acetaminophen (Tylenol 325mg Tab) 650 mg PO Q4H PRN PRN Reason: Pain, Mild (1-3) Morphine Sulfate (Morphine) 1 mg IVP Q6 PRN PRN Reason: Pain, moderate (4-7) Last Admin: 05/03/18 11:42 Dose: 1 mg Ondansetron HCl (Zofran Inj) 4 mg IVP Q6 PRN PRN Reason: Nausea/Vomiting Sertraline HCl (Zoloft) 100 mg PO DAILY MARTHA Last Admin: 05/04/18 12:06 Dose: 100 mg Zolpidem Tartrate (Ambien) 10 mg PO HS PRN; Protocol PRN Reason: Insomnia Last Admin: 05/03/18 22:21 Dose: 10 mg - Labs Labs: 05/04/18 05:00 05/04/18 05:00 - Additional Findings Additional findings: - Constitutional Appears: Well, Non-toxic, No Acute Distress - Head Exam Head Exam: ATRAUMATIC, NORMAL INSPECTION - Eye Exam Eye Exam: EOMI, Normal appearance, PERRL. absent: Scleral icterus - ENT Exam ENT Exam: Mucous Membranes Moist - Neck Exam Neck exam: Positive for: Normal Inspection - Respiratory Exam Respiratory Exam: Clear to Auscultation Bilateral, NORMAL BREATHING PATTERN. absent: Rales, Rhonchi, Wheezes - Cardiovascular Exam Cardiovascular Exam: REGULAR RHYTHM, +S1, +S2. absent: Tachycardia, JVD, Systolic Murmur - GI/Abdominal Exam GI & Abdominal Exam: Normal Bowel Sounds, Soft. absent: Distended, Firm, Guarding, Hernia, Rebound, Rigid, Tenderness - Extremities Exam Extremities exam: Positive for: normal inspection - Neurological Exam Neurological exam: Alert, Oriented x3 - Skin Skin Exam: Normal Color, Warm Assessment and Plan - Assessment and Plan (Free Text) Plan: Mr Serna is a 72 year old male with a PMHx of lumbar disc disease, arthritis, who presents with crampy right upper quadrant abdominal pain for the past 2 weeks: Biliary Colic -rule out cholecystitis -CT abd/pelvis w/ contrast: * Incomplete distention of the gallbladder. Probable gallstone. -abd ultrasound: * cholelithiasis, CBD 4mm -LFTs normal, CBD size normal -f/u biliary HIDA scan * Isotope for HIDA scan on national shortage so can not be performed. -tolerated liquid diet - advance to regular diet -general surgery on board - Dr Velasco * Isotope for HIDA scan on national shortage so can not be performed. Patient with symptoms of biliary colic now resolved and no evidence of acute cholecystitis. OK to resume regular diet. If tolerates, can be discharged home for outpatient follow up. If pain worsened with diet, will plan for Lap rhonda 05/[address] Velasco. Seen and discussed with Dr Nicholas <Lula Nicholas V - Last Filed: 05/04/18 23:58> Objective - Vital Signs/Intake and Output Vital Signs (last 24 hours): Temp Pulse Resp BP Pulse Ox 98.0 F 54 L 20 116/66 97 05/04/18 14:00 05/04/18 14:00 05/04/18 14:00 05/04/18 14:00 05/04/18 14:00 Intake and Output: 05/04/18 05/05/18 18:59 06:59 Intake Total 420 Balance 420 - Medications Medications: Current Medications Acetaminophen (Tylenol 325mg Tab) 650 mg PO Q4H PRN PRN Reason: Pain, Mild (1-3) Last Admin: 05/04/18 16:52 Dose: 650 mg Alprazolam (Xanax) 0.5 mg PO BID PRN; Protocol PRN Reason: Anxiety Last Admin: 05/04/18 18:53 Dose: 0.5 mg Heparin Sodium (Porcine) (Heparin) 5,000 units SC Q8 MARTHA; Protocol Last Admin: 05/04/18 22:16 Dose: 5,000 units Morphine Sulfate (Morphine) 1 mg IVP Q6 PRN PRN Reason: Pain, moderate (4-7) Last Admin: 05/03/18 11:42 Dose: 1 mg Ondansetron HCl (Zofran Inj) 4 mg IVP Q6 PRN PRN Reason: Nausea/Vomiting Sertraline HCl (Zoloft) 100 mg PO DAILY MARTHA Last Admin: 05/04/18 12:06 Dose: 100 mg Zolpidem Tartrate (Ambien) 10 mg PO HS PRN; Protocol PRN Reason: Insomnia Last Admin: 05/04/18 22:16 Dose: 10 mg - Labs Labs: 05/04/18 05:00 05/04/18 05:00 Attending/Attestation - Attestation I have personally seen and examined this patient.: Yes I have fully participated in the care of the patient.: Yes I have reviewed all pertinent clinical information, including history, physical exam and plan: Yes Notes (Text): This is an addendum to GI followup report dictated by the Telephoner. The patient was seen and evaluated earlier. Medical records, lab studies, imagings were reviewed. Last 24 hours events reviewed. Agreed with the above treatment plan as outlined in Telephoner 's notes with the addition of the following 05/04/18 23:58
[2018-05-05 07:58] LABS: BASO # 0.01 K/mm3 (0.0-2.0); BASO % 0.2 % (0.0-3.0); EOS # 0.1 (0.0-0.7); EOS % 1.6 % (1.5-5.0); GRAN # 3.3 (1.4-6.5); GRAN % 52.7 % (50.0-68.0); HEMOGLOBIN 14.3 g/dL (14.0-18.0); LYMPH # 2.1 (1.2-3.4); LYMPH % 33.8 % (22.0-35.0); MEAN CELL VOLUME 87.9 fl (80.0-105.0); MEAN CORPUSCULAR HEMOGLOBIN 30.2 pg (25.0-35.0); MEAN CORPUSCULAR HGB CONC 34.4 g/dl (31.0-37.0); MEAN PLATELET VOLUME 9.7 fl (7.0-11.0); MONO # 0.7 (0.1-0.6); MONO % 11.7 % (1.0-6.0); RBC 4.73 10^6/uL (3.5-6.1); RED CELL DISTRIBUTION WIDTH 14.4 % (11.5-14.5); WHITE BLOOD COUNT 6.3 10^3/uL (4.5-11.0)
[2018-05-05 08:17] LABS: ALB/GLOB RATIO 1.2 (1.1-1.8); ALBUMIN 3.8 g/dL (3.0-4.8); ALT/SGPT 27 U/L (7-56); AST/SGOT 27 U/L (17-59); BLOOD UREA NITROGEN 16 mg/dL (7-21); CALCIUM 9.1 mg/dL (8.4-10.5); GFR NON-AFRICAN AMERICAN > 60
--- NOTE | 2018-05-05 09:33 | PN ---
SUBJECTIVE: The patient was seen and examined at bedside on the general medical rolle. No acute events overnight. He remains afebrile, hemodynamically stable and furthermore reports near resolution of his abdominal discomfort. He is tolerating p.o. intake and offers no complaints. OBJECTIVE: VITAL SIGNS: Temperature 98, pulse 56, blood pressure 122/72, respiratory rate 20, oxygen saturation 99% on room air. GENERAL: No apparent distress. HEENT: PERRL, EOMI. No scleral icterus. No conjunctival pallor. NECK: No JVD, no bruits. LUNGS: Clear to auscultation. CARDIOVASCULAR: Regular rate and rhythm. Normal S1, S2. ABDOMEN: Normoactive bowel sounds. Soft, nontender, nondistended. EXTREMITIES: No edema. NEUROLOGIC: Awake, alert and oriented x 3. No focal motor deficits. LABORATORY DATA: CBC reviewed and unremarkable. CMP reviewed and unremarkable. ASSESSMENT: The patient is a 72-year-old man with a past medical history of lumbosacral radiculopathy who presented for evaluation of a several day history of biliary colic who was admitted for surgical evaluation of cholelithiasis. PLAN: 1. Cholelithiasis. Input from the surgical team noted and appreciated. The patient is tolerating p.o. intake and if remains asymptomatic. I have discussed the case with Dr. Velasco and the patient will be discharged to home with plans made to return for elective cholecystectomy. 2. Depression. Continue Zoloft 100 mg p.o. daily. 3. Lumbosacral radiculopathy. 4. Insomnia. Continue Ambien 10 mg p.o. at bedtime as needed. 5. Prophylaxis. Continue Pepcid for GI prophylaxis. DVT prophylaxis not indicated as this patient is ambulatory. CODE STATUS: Full code. Baudilio Egan MD LEILANI
[2018-05-05 15:12] VITALS: BP 117/76; PULSE 55; TEMP 97.9; O2SAT 97
--- NOTE | 2018-05-05 23:02 | CP.PCM.PN ---
Subjective - Date & Time of Evaluation Date of Evaluation: 05/05/18 Time of Evaluation: 06:35 - Subjective Subjective: Patient seen and examined. No acute events over night. Tolerating diet. Denies abdominal pain. Objective - Vital Signs/Intake and Output Vital Signs (last 24 hours): Temp Pulse Resp BP Pulse Ox 97.9 F 55 L 20 117/76 97 05/05/18 14:00 05/05/18 14:00 05/05/18 14:00 05/05/18 14:00 05/05/18 14:00 - Medications Medications: Current Medications Acetaminophen (Tylenol 325mg Tab) 650 mg PO Q4H PRN PRN Reason: Pain, Mild (1-3) Last Admin: 05/04/18 16:52 Dose: 650 mg Alprazolam (Xanax) 0.5 mg PO BID PRN; Protocol PRN Reason: Anxiety Last Admin: 05/04/18 18:53 Dose: 0.5 mg Heparin Sodium (Porcine) (Heparin) 5,000 units SC Q8 MARTHA; Protocol Last Admin: 05/05/18 14:53 Dose: Not Given Morphine Sulfate (Morphine) 1 mg IVP Q6 PRN PRN Reason: Pain, moderate (4-7) Last Admin: 05/03/18 11:42 Dose: 1 mg Nicotine (Nicoderm Cq) 1 patch TD DAILY [facility] Last Admin: 05/05/18 17:25 Dose: Not Given Ondansetron HCl (Zofran Inj) 4 mg IVP Q6 PRN PRN Reason: Nausea/Vomiting Sertraline HCl (Zoloft) 100 mg PO DAILY [facility] Last Admin: 05/05/18 09:51 Dose: 100 mg Zolpidem Tartrate (Ambien) 10 mg PO HS PRN; Protocol PRN Reason: Insomnia Last Admin: 05/04/18 22:16 Dose: 10 mg - Labs Labs: 05/05/18 07:00 05/05/18 07:00 - Constitutional Appears: No Acute Distress - Head Exam Head Exam: NORMOCEPHALIC - Eye Exam Eye Exam: Normal appearance - ENT Exam ENT Exam: Mucous Membranes Moist - Respiratory Exam Respiratory Exam: NORMAL BREATHING PATTERN - Cardiovascular Exam Cardiovascular Exam: +S1, +S2 - GI/Abdominal Exam GI & Abdominal Exam: Soft - Neurological Exam Neurological Exam: Alert, Awake, Oriented x3 - Psychiatric Exam Psychiatric exam: Normal Mood - Skin Skin Exam: Dry, Intact, Warm Assessment and Plan - Assessment and Plan (Free Text) Assessment: 72M with cholelithiasis Plan: -Will plan for laparoscopic cholecystectomy on Monday - In the meantime patient may have low fat diet -Should patient decide to have the cholecystectomy done electively he may follow up with Dr. Velasco at his office to choose a date -Further management per primary team D/w Dr. Rod Longoria PGY3
== END 2018-05-05 17:00 | disposition home or self-care (01) | DRG 446 ==
LOC: ED 16:11 → ERH 22:32 → 5RNO 05-03 01:38 → OBSVTOIN 05-03 08:49
PROVIDERS: ADMIT Student in an Organized Health Care Education/Training Program; ATTEND Student in an Organized Health Care Education/Training Program
DX: K80.20 Calculus of gallbladder without cholecystitis without obstruction (principal); M54.17 Radiculopathy, lumbosacral region; N40.0 Benign prostatic hyperplasia without lower urinary tract symptoms; K29.70 Gastritis, unspecified, without bleeding; K57.90 Diverticulosis of intestine, part unspecified, without perforation or abscess without bleeding; K76.0 Fatty (change of) liver, not elsewhere classified; F32.9 Major depressive disorder, single episode, unspecified; G47.00 Insomnia, unspecified; F17.210 Nicotine dependence, cigarettes, uncomplicated